=== PATIENT | female | born 1960 | race Caucasian/White ===

== ENCOUNTER 2022-09-05 10:14 | Inpatient (IN) | payer OTHER ==
[~2022-09-05] VITALS: Ht 160 cm; Wt 54.4 kg
[~2022-09-05 10:14] MED LIST: FOSAMAX5 MG PO
[2022-09-05] MEDS ORDERED: KETOROLAC TROMETHAMINE 60 MG/2 ML VIAL IM ONE (10:30)
[2022-09-05] MEDS ORDERED: ONDANSETRON HCL 4 MG ORAL DISINTEGRATING TAB PO ONE (10:30)
[2022-09-05] MEDS ORDERED: DEXAMETHASONE SOD PHOS 10 MG/1 ML VIAL IM ONE (10:30)
[2022-09-05] MEDS ORDERED: HYDROCODONE/APAP 10MG-325MG TAB PO ONE (13:00)
[2022-09-05 13:59] LABS: BASOPHILS % 0.8 % (0.0-1.0); EOSINOPHILS % 0.2 % (0.0-6.0); HEMATOCRIT 36.8 % (34.2-44.1); HEMOGLOBIN 12.7 g/dL (12.0-16.0); LYMPHOCYTES # (AUTO) 0.4 (1.0-3.2); LYMPHOCYTES % 8.4 % (18.0-39.1); MEAN CORPUSCULAR HEMOGLOBIN 31.5 pg (28-32); MEAN CORPUSCULAR HGB CONC 34.5 g/dL (31-35); MEAN CORPUSCULAR VOLUME 91.3 fL (81-99); MONOCYTES # (AUTO) 0.1 (0.2-0.8); MONOCYTES % 2.2 % (4.4-11.3); NEUTROPHILS # (AUTO) 4.3 (2.1-6.9); PLATELET COUNT 231 x10e3/uL (140-360); RED BLOOD COUNT 4.03 x10e6/uL (3.6-5.1); RED CELL DISTRIBUTION WIDTH 11.6 % (11.7-14.4)
[2022-09-05 13:59] LABS: CLARITY,URINE CLEAR (CLEAR); COLOR,URINE YELLOW (YELLOW); KETONES,URINE TRACE (NEGATIVE); LEUKOCYTE ESTERASE ,URINE NEGATIVE (NEGATIVE); NITRITE,URINE NEGATIVE (NEGATIVE); PROTEIN,URINE DIPSTICK NEGATIVE (NEGATIVE); URINE UROBILINOGEN 0.2 mg/dL (0.2 - 1)
[2022-09-05 14:09] LABS: ANION GAP 15.1 mmol/L (8-16); CALCIUM 9.7 mg/dL (8.4-10.2); CREATININE, SERUM 0.66 mg/dL (0.57-1.11); POTASSIUM 4.1 mmol/L (3.5-5.1)
[2022-09-05 14:14] LABS: EPITHELIAL CELLS,URINE FEW /LPF
[2022-09-05 14:16] LABS: BACTERIA,URINE RARE /HPF; RBC,URINE 0-5 /HPF (0-5)
[2022-09-05 16:05] VITALS: BP 171/81; PULSE 82; RESP 18; TEMP 98.9; O2SAT 99
[2022-09-05] MEDS ORDERED: ALENDRONATE SOD70 MG (16:40)
[2022-09-05] MEDS ORDERED: MELOXICAM7.5 MG PO (16:40)
[2022-09-05] MEDS ORDERED: LYRICA50 MG PO (16:40)
[2022-09-05 16:46] VITALS: BP 173/81; PULSE 80; RESP 18; TEMP 98.9; O2SAT 96
[2022-09-05 18:18] VITALS: BP 173/81; PULSE 80; RESP 18; TEMP 98.9; O2SAT 96
[2022-09-05] MEDS: ONDANSETRON HCL 4 MG ORAL DISINTEGRATING TAB PO PRN (18:41)
[2022-09-05] MEDS: HYDROCODONE/APAP 10MG-325MG TAB PO PRN (18:41)
[2022-09-05 20:00] VITALS: BP 149/68; PULSE 67; RESP 17; TEMP 98.4; O2SAT 98
[2022-09-05 21:00] VITALS: BP 173/81; PULSE 80; RESP 18; TEMP 98.9; O2SAT 96
[2022-09-06] VITALS (7 sets, daily range): BP systolic 134–177; BP diastolic 53–81; PULSE 58–80; RESP 16–18; TEMP 97.9–99.1; O2SAT 96–100
[2022-09-06] MEDS ORDERED: CLONIDINE HCL 0.1 MG TAB PO PRN (04:45)
[2022-09-06] MEDS: PREGABALIN 50 MG CAP PO SCH ×3 (09:09→20:37)
[2022-09-06] MEDS: MELOXICAM 7.5 MG TAB PO SCH (09:10)
[2022-09-06] MEDS: HYDROCODONE/APAP 10MG-325MG TAB PO PRN ×3 (09:10→21:29)
[2022-09-06] MEDS: ONDANSETRON HCL 4 MG ORAL DISINTEGRATING TAB PO PRN ×3 (09:17→21:29)
[2022-09-07] VITALS (8 sets, daily range): BP systolic 116–165; BP diastolic 52–71; PULSE 56–72; RESP 17–21; TEMP 97.7–98.5; O2SAT 98–100
[2022-09-07] MEDS: MELOXICAM 7.5 MG TAB PO SCH (08:24)
[2022-09-07] MEDS: ONDANSETRON HCL 4 MG ORAL DISINTEGRATING TAB PO PRN ×3 (08:24→21:38)
[2022-09-07] MEDS: PREGABALIN 50 MG CAP PO SCH ×3 (08:24→21:38)
[2022-09-07] MEDS: HYDROCODONE/APAP 10MG-325MG TAB PO PRN ×3 (08:26→21:38)
[2022-09-08 00:37] VITALS: BP 115/46; PULSE 61; RESP 16; TEMP 98.1; O2SAT 100
[2022-09-08 04:40] VITALS: BP 122/59; PULSE 56; RESP 16; TEMP 98.2; O2SAT 99
[2022-09-08 08:47] VITALS: BP 144/70; PULSE 66; RESP 18; TEMP 98.1; O2SAT 100
[2022-09-08] MEDS: PREGABALIN 50 MG CAP PO SCH ×3 (08:51→20:46)
[2022-09-08] MEDS: MELOXICAM 7.5 MG TAB PO SCH (08:51)
[2022-09-08] MEDS: HYDROCODONE/APAP 10MG-325MG TAB PO PRN ×3 (08:55→21:23)
[2022-09-08] MEDS: ONDANSETRON HCL 4 MG ORAL DISINTEGRATING TAB PO PRN ×3 (08:55→20:46)
[2022-09-08 11:57] VITALS: BP 159/71; PULSE 66; RESP 20; TEMP 97; O2SAT 100
[2022-09-08 16:00] VITALS: BP 169/68; PULSE 72; RESP 20; TEMP 97.8; O2SAT 100
[2022-09-08 20:00] VITALS: BP 166/60; PULSE 64; RESP 18; TEMP 97.4; O2SAT 100
[2022-09-09] VITALS (7 sets, daily range): BP systolic 114–160; BP diastolic 52–74; PULSE 60–72; RESP 16–18; TEMP 97.5–98.6; O2SAT 95–100
[2022-09-09] MEDS: PREGABALIN 50 MG CAP PO SCH ×3 (09:15→21:28)
[2022-09-09] MEDS: ONDANSETRON HCL 4 MG ORAL DISINTEGRATING TAB PO PRN ×3 (09:15→21:27)
[2022-09-09] MEDS: MELOXICAM 7.5 MG TAB PO SCH (09:15)
[2022-09-09] MEDS: HYDROCODONE/APAP 10MG-325MG TAB PO PRN ×3 (09:20→21:29)
[2022-09-10] VITALS (9 sets, daily range): BP systolic 130–187; BP diastolic 58–77; PULSE 61–79; RESP 16–18; TEMP 97.7–98.4; O2SAT 97–100
[2022-09-10] MEDS: HYDROCODONE/APAP 10MG-325MG TAB PO PRN ×3 (09:07→21:12)
[2022-09-10] MEDS: MELOXICAM 7.5 MG TAB PO SCH (09:08)
[2022-09-10] MEDS: ONDANSETRON HCL 4 MG ORAL DISINTEGRATING TAB PO PRN ×3 (09:08→21:12)
[2022-09-10] MEDS: PREGABALIN 50 MG CAP PO SCH ×3 (09:08→21:12)
[2022-09-11] VITALS: BP 130/58; PULSE 58; RESP 18; TEMP 97.9; O2SAT 99
[2022-09-11 07:44] VITALS: BP 146/57; PULSE 77; RESP 20; TEMP 97.5; O2SAT 100
[2022-09-11 07:57] VITALS: BP 146/57; PULSE 77; RESP 20; TEMP 97.5; O2SAT 100
[2022-09-11] MEDS: MELOXICAM 7.5 MG TAB PO SCH (08:53)
[2022-09-11] MEDS: PREGABALIN 50 MG CAP PO SCH (08:54)
[2022-09-11] MEDS: HYDROCODONE/APAP 10MG-325MG TAB PO PRN (09:00)
[2022-09-11] MEDS: ONDANSETRON HCL 4 MG ORAL DISINTEGRATING TAB PO PRN (09:00)
== END 2022-09-11 09:22 | disposition home or self-care (01) | DRG 552 ==
LOC: ER 10:19 → ERHOLD 13:51 → MED/SURG2 15:42 → OBSVTOIN 09-07 09:01
PROVIDERS: ADMIT Internal Medicine; ATTEND Internal Medicine
DX: M54.30 Sciatica, unspecified side (principal); E87.1 Hypo-osmolality and hyponatremia; M81.0 Age-related osteoporosis without current pathological fracture; I10 Essential (primary) hypertension; M79.604 Pain in right leg; M48.04 Spinal stenosis, thoracic region; Z20.822 Contact with and (suspected) exposure to COVID-19
CPT/HCPCS: 36415; 72148; 80048; 81001; 85025; 99284; G0378; J1100; J1885; Q0162